=== PATIENT | female | born 1990 | race African-American/Black ===

== ENCOUNTER 2017-06-17 13:32 | Inpatient (IN) | END 2017-06-20 15:20 | disposition home or self-care (01) | DRG 775 | DX: O70.1 Second degree perineal laceration during delivery (principal); Z37.0 Single live birth; E66.01 Morbid (severe) obesity due to excess calories; O99.214 Obesity complicating childbirth; Z68.33 Body mass index [BMI] 33.0-33.9, adult; Z3A.39 39 weeks gestation of pregnancy ==